=== PATIENT | male | born 1985 | race African-American/Black ===

== ENCOUNTER 2024-08-18 13:05 | Emergency (ER) | payer OTHER ==
[2024-08-18 13:23] VITALS: BP 129/89; PULSE 72; RESP 18; TEMP 98.6; BMI 30.6
[2024-08-18] MEDS ORDERED: IBUPROFEN 400 MG TABLET (FP) PO ONE (15:22)
[2024-08-18] MEDS: IBUPROFEN 400 MG TABLET (FP) PO ONE (16:56)
== END 2024-08-18 16:15 | disposition left against medical advice (07) ==
LOC: JER 13:05
DX: R07.9 Chest pain, unspecified (principal)
CPT/HCPCS: 93005; 93010; 99284-25